=== PATIENT | male | born 1960 | race Caucasian/White ===

== ENCOUNTER → 2016-08-20 | Outpatient (CLI) | payer MEDICARE ==
[~2016-08-20] MED LIST: MPR22T TOP; SULF1TAB23 PO
== END ==
LOC: RAD 13:13
PROVIDERS: ATTEND Nurse Practitioner
DX: M75.101 Unspecified rotator cuff tear or rupture of right shoulder, not specified as traumatic (principal)

== ENCOUNTER → 2016-08-27 | Outpatient (CLI) | payer MEDICARE | LOC: RAD 10:49 | PROVIDERS: ATTEND Nurse Practitioner | DX: M75.101 Unspecified rotator cuff tear or rupture of right shoulder, not specified as traumatic (principal) ==

== ENCOUNTER 2019-04-22 05:36 | Outpatient (CLI) | payer MEDICARE ==
[~2019-04-22] VITALS: Ht 182.9 cm; Wt 114.5 kg
== END 2019-04-22 14:44 ==
LOC: PREOP 05:36
PROVIDERS: ATTEND Surgery
DX: Z01.818 Encounter for other preprocedural examination (principal)

== ENCOUNTER → 2021-03-01 | Outpatient (CLI) | payer MEDICARE ==
[~2021-03-01] MED LIST changes: +NAPR500T8 PO
--- NOTE | 2021-03-01 18:03 | Diagnostic Imaging Report ---
CLINICAL INDICATION: Patient with low back pain. EXAM: MRI of the lumbar spine performed without IV contrast. Sagittal T2, sagittal T1, sagittal STIR, axial T1, and axial T2. COMPARISON: None. FINDINGS: Lumbar spine has normal alignment with no fracture or dislocation. 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 Otherwise, the lumbar vertebrae have normal T1 and T2 signal. The visualized portions of the distal spinal cord, conus medullaris, and cauda equina have normal anatomic appearance. The conus medullaris tip is seen at the lower L1 vertebral body level. No paraspinal soft tissue abnormality is seen. T10-T11: There is a mild disc bulge with disc herniation component extending to the right foraminal region. There is moderate right neural foramen narrowing. There is no significant left neural foramen narrowing and no significant central canal narrowing. There is mild bilateral facet arthropathy. T11-T12: There is a mild diffuse disc bulge. There is zoyl-jk-uhfygvqi right neural foramen narrowing. There is no significant central canal or left neural foramen narrowing. T12-L1: Unremarkable. L1-L2: There is a mild diffuse disc bulge. There is bxrh-tf-pxsefpus left facet arthropathy. There is moderate left neural foramen narrowing. There is no significant central canal or right neural foramen narrowing. L2-L3: There is a mild diffuse disc bulge with prominent posterior disc herniation component. There is mild bilateral facet arthropathy. There is ksfaieqi-vq-rgtrim bilateral neural foramen narrowing. There is mild central canal stenosis. L3-L4: There is a mild diffuse disc bulge with prominent posterior disc herniation component. There is a small left subarticular disc extrusion/herniation component encroaching upon the left neural foramen region. There is mild bilateral facet arthropathy. There is mild central canal stenosis. There is severe left neural foramen narrowing and severe right neural foramen narrowing (left side more than the right). L4-L5: There is a diffuse disc bulge with prominent right subarticular disc extrusion/herniation with roughly 6 mm of caudal disc migration. There is mild loss of disc space height. There is mild bilateral facet arthropathy. There is no significant central canal stenosis. There is severe right neural foramen narrowing and koxbublk-sc-tkqkqu left neural foramen narrowing. L5-S1: There is a mild diffuse disc bulge with superimposed right subarticular disc extrusion/herniation. There is possible encroachment upon the non-exited right S1 nerve root. There is mild bilateral facet arthropathy. There is no significant central canal stenosis. There is severe bilateral neural foramen narrowing. IMPRESSION: There is ykleccca-pt-bmqnuk multilevel lumbar spine degenerative disease which is described in detail above. Dictated by: Dictated on workstation # [id number]
== END ==
LOC: RAD 13:37
PROVIDERS: ATTEND Physician Assistant
DX: M47.814 Spondylosis without myelopathy or radiculopathy, thoracic region (principal); M47.816 Spondylosis without myelopathy or radiculopathy, lumbar region; M47.817 Spondylosis without myelopathy or radiculopathy, lumbosacral region; M51.24 Other intervertebral disc displacement, thoracic region; M51.26 Other intervertebral disc displacement, lumbar region; M51.27 Other intervertebral disc displacement, lumbosacral region; M48.04 Spinal stenosis, thoracic region; M48.061 Spinal stenosis, lumbar region without neurogenic claudication; M48.07 Spinal stenosis, lumbosacral region; D18.09 Hemangioma of other sites
CPT/HCPCS: 72148

== ENCOUNTER 2022-10-18 15:21 | Emergency (ER) | payer MEDICARE, MEDICAID ==
[~2022-10-18] VITALS: Ht 182.8 cm; Wt 124.7 kg
--- NOTE | 2022-10-18 16:05 | ED General ---
General Chief Complaint: Chest Wall Stated Complaint: FALL/RIGHT RIB/LUNG/CHEST PAIN Source of Information: Patient Exam Limitations: Physical Impairments (Patient hard of hearing, has difficulty communicating, does not have clear speech, does not know how to sign) History of Present Illness Date Seen by Provider: Oct 18, 2022 Time Seen by Provider: 15:41 Initial Comments 62-year-old male presents to the ER with complaint of right-sided rib pains. He states that he fell on Saturday after losing his balance, was seen at [facility] and had a chest x-ray which did not show any broken ribs. He states that he has continued to have pain although he has been taking naproxen. He is also complaining of right upper quadrant abdominal pain. Patient states he did not hit his head. Reports he has been coughing, unable to state if he has been having trouble breathing. Obtaining history and evaluation very difficult due to patient's poor hearing and difficulty talking. Patient's voice sounds like he is deaf, but patient states he does not use sign language. Used paper and pen to help with assessment, but patient would usually speak his answers, he does not have clear speech, so it is still difficult to understand him. Allergies and Home Medications Allergies Coded Allergies: No Known Drug Allergies (Unverified , 04/29/19) Patient Home Medication List Home Medication List Reviewed: Yes Naproxen (Naproxen) 500 Mg Tablet.dr, 500 MG PO BID, (Reported) Entered as Reported by: PUSHPA BACA on 04/29/19 0822 Tramadol HCl (Tramadol HCl) 50 Mg Tablet, 50 MG PO Q4H PRN for PAIN Prescribed by: Jayde Martin on 10/18/22 1803 Review of Systems Review of Systems Constitutional: see HPI Past Vxszaej-Pytlmc-Zaodgc Hx Seasonal Allergies Seasonal Allergies: No Past Medical History Surgeries: Yes (facial lacerations repaired) Respiratory: No Currently Using CPAP: No Currently Using BIPAP: No Cardiac: No Neurological: No Genitourinary: No Gastrointestinal: No Musculoskeletal: No Endocrine: No HEENT: Yes Hearing Impairment: Hard of Hearing Cancer: No Psychosocial: Yes Schizophrenia Integumentary: No Blood Disorders: No Physical Exam Vital Signs Vital Signs - First Documented 10/18/22 15:45 Temp 36.4 Pulse 82 Resp 18 B/P (MAP) 166/105 (125) Pulse Ox 96 O2 Delivery Room Air Capillary Refill : Height, Weight, BMI Height: '" Weight: lbs. oz. kg; 34.84 BMI Method: General Appearance: No Apparent Distress, WD/WN Neck: Normal Inspection, Supple Respiratory: Lungs Clear, Normal Breath Sounds, No Accessory Muscle Use, No Respiratory Distress Cardiovascular: Regular Rate, Rhythm Gastrointestinal: Normal Bowel Sounds, Soft, Tenderness (Right upper quadrant) Extremity: Normal Inspection, Normal Range of Motion Neurologic/Psychiatric: Alert, Normal Mood/Affect Skin: Normal Color, Warm/Dry Progress/Results/Core Measures Suspected Sepsis SIRS Temperature: Pulse: Respiratory Rate: Laboratory Tests 10/18/22 16:30: White Blood Count 6.1 Blood Pressure / Mean: Laboratory Tests 10/18/22 16:30: Creatinine 0.79, Platelet Count 202, Total Bilirubin 0.5 Results/Orders Lab Results Laboratory Tests Test 10/18/22 16:30 Range/Units White Blood Count 6.1 4.3-11.0 10^3/uL Red Blood Count 4.99 4.30-5.52 10^6/uL Hemoglobin 15.8 13.3-17.7 g/dL Hematocrit 47 40-54 % Mean Corpuscular Volume 95 80-99 fL Mean Corpuscular Hemoglobin 32 25-34 pg Mean Corpuscular Hemoglobin Concent 33 32-36 g/dL Red Cell Distribution Width 12.8 10.0-14.5 % Platelet Count 202 130-400 10^3/uL Mean Platelet Volume 9.3 9.0-12.2 fL Immature Granulocyte % (Auto) 0 % Neutrophils (%) (Auto) 61 42-75 % Lymphocytes (%) (Auto) 23 12-44 % Monocytes (%) (Auto) 13 H 0-12 % Eosinophils (%) (Auto) 3 0-10 % Basophils (%) (Auto) 1 0-10 % Neutrophils # (Auto) 3.7 1.8-7.8 10^3/uL Lymphocytes # (Auto) 1.4 1.0-4.0 10^3/uL Monocytes # (Auto) 0.8 0.0-1.0 10^3/uL Eosinophils # (Auto) 0.2 0.0-0.3 10^3/uL Basophils # (Auto) 0.0 0.0-0.1 10^3/uL Immature Granulocyte # (Auto) 0.0 0.0-0.1 10^3/uL Sodium Level 139 135-145 MMOL/L Potassium Level 4.1 3.6-5.0 MMOL/L Chloride Level 105 98-107 MMOL/L Carbon Dioxide Level 26 21-32 MMOL/L Anion Gap 8 5-14 MMOL/L Blood Urea Nitrogen 15 7-18 MG/DL Creatinine 0.79 0.60-1.30 MG/DL Estimat Glomerular Filtration Rate 102 BUN/Creatinine Ratio 19 Glucose Level 108 H 70-105 MG/DL Calcium Level 9.2 8.5-10.1 MG/DL Corrected Calcium 9.4 8.5-10.1 MG/DL Total Bilirubin 0.5 0.1-1.0 MG/DL Aspartate Amino Transf (AST/SGOT) 14 5-34 U/L Alanine Aminotransferase (ALT/SGPT) 13 0-55 U/L Alkaline Phosphatase 55 40-136 U/L Total Protein 7.1 6.4-8.2 GM/DL Albumin 3.8 3.2-4.5 GM/DL Lipase 16 8-78 U/L My Orders Orders - JAYDE MACEDO APRN Comprehensive Metabolic Panel (10/18/22 15:50) Lipase (10/18/22 15:50) Ed Iv/Invasive Line Start (10/18/22 15:50) Cbc With Automated Diff (10/18/22 15:50) Ct Chest/Abdomen/Pelvis W (10/18/22 15:50) Ketorolac Injection (Ketorolac Injection (10/18/22 16:15) Ns Iv 1000 Ml (Sodium Chloride 0.9%) (10/18/22 16:15) Iohexol Injection (Omnipaque 350 Mg/Ml 1 (10/18/22 17:45) Received Contrast (Hold Metformin- Contr (10/18/22 17:45) Ns (Ivpb) 100 Ml (Sodium Chloride 0.9% 1 (10/18/22 17:45) Rx-Tramadol Hcl (Rx-Ultram) (10/18/22 18:03) Medications Given in ED Current Medications Medications Dose Ordered Sig/Alessandra Route Start Time Stop Time Status Last Admin Dose Admin Iohexol 100 ml ONCE ONCE IV 10/18/22 17:45 10/18/22 17:46 DC 10/18/22 17:33 100 ML Ketorolac Tromethamine 15 mg ONCE ONCE IVP 10/18/22 16:15 10/18/22 16:16 DC 10/18/22 16:37 15 MG Sodium Chloride 100 ml ONCE ONCE IV 10/18/22 17:45 10/18/22 17:46 DC 10/18/22 17:33 80 ML Vital Signs/I&O 10/18/22 10/18/22 15:45 18:20 Temp 36.4 Pulse 82 73 Resp 18 20 B/P (MAP) 166/105 (125) 167/105 Pulse Ox 96 92 O2 Delivery Room Air Capillary Refill : Progress Note : Progress Note Patient seen and evaluated, resting comfortably in bed, no acute distress. Based on exam and symptoms, will obtain a CT of the chest and abdomen to evaluate for rib fractures and injury to abdomen due to right upper quadrant pain. CBC, CMP, and lipase ordered. IV fluids and Toradol ordered. [address] reviewed. CBC grossly normal. CMP grossly normal. CT abdomen pelvis shows nondisplaced fracture of the right lateral seventh rib. No other acute abnormality in the chest abdomen pelvis. It also shows a few tiny subcentimeter nodules within the right lung. Patient reports some improvement in pain. Results discussed with patient. Will discharge with prescription for tramadol. Discharge instructions and return precautions provided. Diagnostic Imaging Diagonstic Imaging: CT Plain Films/CT/US/NM/MRI: chest, abdomen, pelvis Comments [facility], [place] NAME: BALMERCEDES Annette [facility] REC#: [id number] PT STATUS: REG ER : 1960 PHYSICIAN: JAYDE MACEDO APRN ADMIT DATE: 10/18/22/ER Signed Date of Exam:10/18/22 CT CHEST/ABDOMEN/PELVIS W EXAMINATION: CT chest, abdomen and pelvis with intravenous contrast. TECHNIQUE: Multiple contiguous axial images were obtained through the chest, abdomen and pelvis after the uneventful administration of intravenous contrast. All CT scans use one or more of the following dose optimizing techniques: automated exposure control, MA and/or KvP adjustment based on patient size and exam type or iterative reconstruction. HISTORY: Right upper quadrant abdominal pain after fall. COMPARISON: None available. FINDINGS: Thyroid: The visualized thyroid gland is normal. Mediastinum: Heart size is normal without significant pericardial effusion. The aorta is normal in caliber. No suspicious lymphadenopathy. Lungs and airways: The lungs are clear without consolidation, pleural effusion, or pneumothorax. There is atelectasis within the dependent lungs. There are a few tiny subcentimeter nodules seen within the subpleural right lung. Largest measures up to 0.4 cm (series 3 image 78). The airways are normal. Solid organs: The liver is normal without focal lesion. The gallbladder is normal. There is no biliary ductal dilation. Pancreas is normal. Spleen is normal. Adrenal glands are normal. The kidneys are normal without hydronephrosis. Bowel: The stomach and small bowel are normal without obstruction. The colon is normal. The appendix is normal. Peritoneum: There is no intraperitoneal free fluid or free air. No suspicious lymphadenopathy. Vasculature: Normal without aneurysm. Musculoskeletal: Degenerative changes of the spine without suspicious osseous lesion or compression fracture. There is a nondisplaced fracture of the right seventh rib. Pelvis: The prostate gland is normal. The urinary bladder is normal. IMPRESSION: 1. Nondisplaced fracture of the right lateral seventh rib. 2. No other acute abnormality in the chest, abdomen, or pelvis. Dictated by: Dictated on workstation # [id number] Dict: 10/18/221738 Trans: 10/18/221755 [id number] [id number] Interpreted by: SHIREEN ASHER DO Electronically signed by: SHIREEN ASHER DO 10/18/221755 Departure Impression Primary Impression: Fracture of rib Disposition: 01 HOME, SELF-CARE Condition: Stable Departure-Patient Inst. Decision time for Depature: 18:00 Referrals: [facility] (PCP/Family) Primary Care Physician Patient Instructions: Rib Fracture (DC) Add. Discharge Instructions: Take tramadol as needed for pain. It may make you sleepy. You can continue to take your naproxen or Tylenol as needed for pain. Splint by pressing a pillow against your ribs when coughing. Make sure you are taking deep breaths and coughing forcefully to prevent pneumonia. Follow-up with your primary care provider. Return for any new, concerning, or worsening symptoms. All discharge instructions reviewed with patient and/or family. Voiced und erstanding. Scripts Tramadol HCl (Tramadol HCl) 50 Mg Tablet 50 MG PO Q4H PRN for PAIN, #15 TAB 0 Refills Prov: JAYDE MACEDO APRN 10/18/22 JAYDE MACEDO APRN Oct 18, 2022 16:05
[2022-10-18] MEDS: NS IV 1000 ML 1,000 ML IV SCH (16:37)
[2022-10-18] MEDS: KETOROLAC INJ 15 MG/ML VIAL IVP ONE (16:37)
[2022-10-18 16:40] LABS: BASOPHILS % (AUTO) 1 % (0-10); EOSINOPHILS # (AUTO) 0.2 10^3/uL (0.0-0.3); EOSINOPHILS % (AUTO) 3 % (0-10); HEMATOCRIT 47 % (40-54); HEMOGLOBIN 15.8 g/dL (13.3-17.7); LYMPHOCYTES # (AUTO) 1.4 10^3/uL (1.0-4.0); LYMPHOCYTES % (AUTO) 23 % (12-44); MEAN CORPUSCULAR HEMOGLOBIN 32 pg (25-34); MEAN CORPUSCULAR HGB CONC 33 g/dL (32-36); MEAN CORPUSCULAR VOLUME 95 fL (80-99); MEAN PLATELET VOLUME 9.3 fL (9.0-12.2); MONOCYTES # (AUTO) 0.8 10^3/uL (0.0-1.0); MONOCYTES % (AUTO) 13 % (0-12); NEUTROPHILS # (AUTO) 3.7 10^3/uL (1.8-7.8); NEUTROPHILS % (AUTO) 61 % (42-75); PLATELET COUNT 202 10^3/uL (130-400); WHITE BLOOD COUNT 6.1 10^3/uL (4.3-11.0)
[2022-10-18 17:06] LABS: ALBUMIN 3.8 GM/DL (3.2-4.5); POTASSIUM 4.1 MMOL/L (3.6-5.0)
[2022-10-18 17:07] LABS: CALCIUM 9.2 MG/DL (8.5-10.1)
[2022-10-18 17:08] LABS: TOTAL PROTEIN 7.1 GM/DL (6.4-8.2)
[2022-10-18 17:10] LABS: BILIRUBIN,TOTAL 0.5 MG/DL (0.1-1.0)
[2022-10-18 17:12] LABS: CREATININE SERUM 0.79 MG/DL (0.60-1.30)
[2022-10-18] MEDS: NS 100 ML (IVPB) BAG IV ONE (17:33)
[2022-10-18] MEDS: IOHEXOL 350 MG/ML 100 ML (OMNIPAQUE 350) VIAL IV ONE (17:33)
[2022-10-18] MEDS ORDERED: HOLD METFORMIN - RECEIVED CONTRAST 20 ML VIAL IV SCH (17:45)
--- NOTE | 2022-10-18 17:47 | Diagnostic Imaging Report ---
EXAMINATION: CT chest, abdomen and pelvis with intravenous contrast. TECHNIQUE: Multiple contiguous axial images were obtained through the chest, abdomen and pelvis after the uneventful administration of intravenous contrast. All CT scans use one or more of the following dose optimizing techniques: automated exposure control, MA and/or KvP adjustment based on patient size and exam type or iterative reconstruction. HISTORY: Right upper quadrant abdominal pain after fall. COMPARISON: None available. FINDINGS: Thyroid: The visualized thyroid gland is normal. Mediastinum: Heart size is normal without significant pericardial effusion. The aorta is normal in caliber. No suspicious lymphadenopathy. Lungs and airways: The lungs are clear without consolidation, pleural effusion, or pneumothorax. There is atelectasis within the dependent lungs. There are a few tiny subcentimeter nodules seen within the subpleural right lung. Largest measures up to 0.4 cm (series 3 image 78). The airways are normal. Solid organs: The liver is normal without focal lesion. The gallbladder is normal. There is no biliary ductal dilation. Pancreas is normal. Spleen is normal. Adrenal glands are normal. The kidneys are normal without hydronephrosis. Bowel: The stomach and small bowel are normal without obstruction. The colon is normal. The appendix is normal. Peritoneum: There is no intraperitoneal free fluid or free air. No suspicious lymphadenopathy. Vasculature: Normal without aneurysm. Musculoskeletal: Degenerative changes of the spine without suspicious osseous lesion or compression fracture. There is a nondisplaced fracture of the right seventh rib. Pelvis: The prostate gland is normal. The urinary bladder is normal. IMPRESSION: 1. Nondisplaced fracture of the right lateral seventh rib. 2. No other acute abnormality in the chest, abdomen, or pelvis. Dictated by: Dictated on workstation # [id number]
[2022-10-18] MEDS ORDERED: TRM50T PO (18:02)
[2022-10-18 18:20] VITALS: BP 167/105
== END 2022-10-18 18:20 | disposition home or self-care (01) ==
LOC: EDUNIT# 15:21 → ER 15:25
DX: S22.31XA Fracture of one rib, right side, initial encounter for closed fracture (principal); R10.11 Right upper quadrant pain; W01.0XXA Fall on same level from slipping, tripping and stumbling without subsequent striking against object, initial encounter
CPT/HCPCS: 36415; 71260; 74177; 80053; 83690; 85025